=== PATIENT | female | born 2005 | race Two or more races ===

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

== ENCOUNTER 2024-05-12 16:41 | Emergency (ER) | payer MEDICAID, SELFPAY ==
[2024-05-12 16:45] VITALS: BP 119/66; PULSE 118; RESP 20; TEMP 36.6; O2SAT 99; BMI 29.2
[2024-05-12 17:33] LABS: Strep A DNA Probe* NOT DETECTED (Not Detectd)
--- NOTE | 2024-05-12 17:33 | ED.GENADULT ---
HPI - General Adult General Date Seen: 05/12/24 Chief complaint: Ear/Nose/Throat Problem Stated complaint: Sore throat, cough up bleeding Time Seen by Provider: 05/12/24 16:57 History of Present Illness HPI narrative: Patient is a 18-year-old here with mom for evaluation of sore throat and coughing up blood. He says he has had a sore throat for about 3 weeks. It is worse at night and if he drinks coffee. He is swallowing okay. He has not had a fever that he knows of. He has had a cough and over the past 24 hours a couple times coughed up some clear sputum which was blood-streaked. He has not had any devin hemoptysis, no chest pain, no shortness of breath. He does have a roommate who had influenza couple of weeks ago. He says that he came in today because he was looking online and saw that strep throat could cause rheumatic fever, became concerned and thought he should be seen. Related Data Home Medications ?Medication ?Instructions ?Recorded ?Confirmed cholecalciferol (vitamin D3) 125 125 mcg PO DAILY 01/08/23 01/08/23 mcg (5,000 unit) capsule duloxetine 20 mg capsule,delayed 20 mg PO DAILY 01/08/23 01/08/23 release (Cymbalta) ferrous gluconate 324 mg (37.5 mg 324 mg PO DAILY 01/08/23 01/08/23 iron) tablet hydroxyzine HCl 25 mg tablet 25 mg PO Q6-8H PRN 01/08/23 01/08/23 melatonin 3 mg capsule 3 mg PO DAILY 01/08/23 01/08/23 phentermine 15 mg capsule 15 mg PO DAILY 01/08/23 01/08/23 sumatriptan succinate 25 mg tablet 25 mg PO Q2-4H PRN 01/08/23 01/08/23 testosterone cypionate 200 mg/mL 200 mg IM DAILY 01/08/23 01/08/23 intramuscular kit topiramate 25 mg tablet (Topamax) 75 mg PO DAILY 01/08/23 01/08/23 Allergies Allergy/AdvReac Type Severity Reaction Status Date / Time amoxicillin Allergy Verified 05/12/24 16:45 azithromycin Allergy Verified 05/12/24 16:45 PFSH PFSH Social History Smoking Status: Never smoker Do you use any of these nicotine containing products: None How often do you have a drink containing alcohol: never AUDIT-C Alcohol total score: 0 Non-prescribed substance use: denies use Exam Narrative: Exam Narrative: Vital signs reviewed In general, alert, nontoxic young man. Breathing easily. Voice is normal. Head: Normocephalic, atraumatic. Eyes: Sclera clear. Pupils equal and reactive. ENT: Mucous membranes moist. Throat is normal. No tonsillar exudate or edema. Neck: Supple without adenopathy. Heart: Regular rate and rhythm without murmur. Lungs: Clear. No increased work of breathing, crackles or wheezes. Extremities: Well perfused, pulses intact. No significant edema. Neurologic: Alert, conversant. Speech fluent, face symmetric. Moves all extremities equally. Skin: Warm, dry well perfused. Affect: Normal. Const: Vital Signs, click to edit/add: Vital Signs - 24 hr 05/12/24 16:45 Temperature 97.8 F Pulse Rate [Pulse Oximeter] 118 H Respiratory Rate 20 Blood Pressure [Ri ght Upper Arm] 119/66 Pulse Oximetry 99 Oxygen Delivery Me thod Room Air Course Course ED Course: Rapid strep is pending. Reviewed with him I do not find anything on history or exam to suggest rheumatic fever. He does not have any complaints of chest pain, shortness of breath, fevers, lungs are clear and the bloody noted with coughing sounds like it is likely from an ENT source. At this time I do not see an indication for imaging of the chest. Certainly possible that he has or had influenza with his roommates recent illness. However, given that he has been sick for few weeks, I do not think testing provides a lot of additional information for us. Strep DNA is negative. Symptoms are likely viral. Recommend supportive care, ibuprofen and/or Tylenol. Primary care follow-up if he does not feel is improving. Vital Signs Vital signs: Initial Vital Signs Temperature 97.8 F 05/12/24 16:45 Temperature Source Temporal Artery Scan 05/12/24 16:45 Pulse Rate 118 H 05/12/24 16:45 Respiratory Rate 20 05/12/24 16:45 Blood Pressure 119/66 05/12/24 16:45 Blood Pressure Mean 83 05/12/24 16:45 Blood Pressure Position Sitting 05/12/24 16:45 Pulse Oximetry 99 05/12/24 16:45 Oxygen Delivery Method Room Air 05/12/24 16:45 Vital Signs Temperature 97.8 F 05/12/24 16:45 Pulse Rate 118 H 05/12/24 16:45 Respiratory Rate 20 05/12/24 16:45 Blood Pressure 119/66 05/12/24 16:45 Pulse Oximetry 99 05/12/24 16:45 Oxygen Delivery Method Room Air 05/12/24 16:45 Temperature 97.8 F 05/12/24 16:45 Pulse Rate 118 H 05/12/24 16:45 Respiratory Rate 20 05/12/24 16:45 Blood Pressure 119/66 05/12/24 16:45 Pulse Oximetry 99 05/12/24 16:45 Oxygen Delivery Method Room Air 05/12/24 16:45 Medical Decision Making Lab Data Labs: Lab Results 05/12/24 Range/Units 16:56 Group A Strep DNA NOT DETECTED (Not Detectd) Discharge Plan Discharge Clinical Impression: Pharyngitis Patient Disposition: Home, Self-Care Condition: Stable Instructions: Pharyngitis (ED) Additional Instructions: You can use ibuprofen or Tylenol if you need. As your mom suggest, you can also use cough drops. Return if you are feeling worse. See your doctor if you do not failure improving over the next week or so. Prescriptions: No Action cholecalciferol (vitamin D3) 125 mcg (5,000 unit) capsule 125 mcg PO DAILY duloxetine [Cymbalta] 20 mg capsule,delayed release(DR/EC) 20 mg PO DAILY ferrous gluconate 324 mg (37.5 mg iron) tablet 324 mg PO DAILY hydroxyzine HCl 25 mg tablet 25 mg PO Q6-8H PRN melatonin 3 mg capsule 3 mg PO DAILY sumatriptan succinate 25 mg tablet 25 mg PO Q2-4H PRN Rx Instructions: do not exceed 8 doses per 24 hrs topiramate [Topamax] 25 mg tablet 75 mg PO DAILY phentermine 15 mg capsule 15 mg PO DAILY Rx Instructions: must administer 2 hours after breakfast testosterone cypionate 200 mg/mL kit 200 mg IM DAILY Follow Up/Referrals: Provider,Not a Local [Primary Care Provider] - Stand Alone [facility] Info [facility]
== END 2024-05-12 17:49 | disposition home or self-care (01) ==
PROVIDERS: Emergency Provider Emergency Medicine
DX: J02.9 Acute pharyngitis, unspecified (principal)
CPT/HCPCS: 87651; 99282; 99283

== ENCOUNTER 2024-07-19 10:20 | Emergency (ER) | payer MEDICAID, SELFPAY ==
[2024-07-19 10:26] VITALS: BP 137/76; PULSE 105; RESP 18; TEMP 36.9; O2SAT 97; BMI 28.8
--- NOTE | 2024-07-19 10:55 | CRLHL7_ITS ---
For Patients: As a result of the Century Cures Act, medical imaging exams and procedure reports are released immediately into your electronic medical record. You may view this report before your referring provider. If you have questions, please contact your health care provider. INDICATION: Right-sided chest discomfort. TECHNIQUE: Chest 2 views. COMPARISON: None FINDINGS: Tubes and devices: None. Lungs: Lungs are clear. No sign of infiltrate or mass. Pleura: No pleural effusion. No pneumothorax. Heart: Heart size and vasculature are normal in caliber and appearance. Ayesha and Mediastinum: No enlargement. Bones and soft tissues: No significant findings. IMPRESSION: Unremarkable chest. Dictated by Marques Catalan MD @ 07/19/2024 11:10:08 AM (Electronically Signed)
--- NOTE | 2024-07-19 10:59 | ED_ITS ---
HPI - Chest Pain General Date Seen: 07/19/24 Chief Complaint: Chest Pain Stated Complaint: chest pain Time Seen by Provider: 07/19/24 10:42 Source: patient Mode of arrival: ambulatory Limitations: no limitations History of Present Illness HPI narrative: Patient is a 18-year-old female to male transgender patient presenting to the emergency department for right-sided chest discomfort. He states since last night having this right-sided chest discomfort. Initially was radiating to his right shoulder now seems to be is located in the right side of his chest. Also states is the tingling sensation and he has been having palpitations. Palpitations seems still be there at this time he states. Has been having some mild lightheadedness. Will feel some shortness of breath with exertion. Has not been having a cough. Has not noticed any hemoptysis. No recent travel. Is taking testosterone. Denies history of calling disorders in the family. Has never had a blood clot before. Denies diarrhea,, abdominal pain, fevers, chills, sick contacts. Did try to eat without any relief in the symptoms. No other concerns noted denies symptoms to this before. Related Data Home Medications ?Medication ?Instructions ?Recorded ?Confirmed cholecalciferol (vitamin D3) 125 125 mcg PO DAILY 01/08/23 07/19/24 mcg (5,000 unit) capsule duloxetine 20 mg capsule,delayed 20 mg PO DAILY 01/08/23 07/19/24 release (Cymbalta) ferrous gluconate 324 mg (37.5 mg 324 mg PO DAILY 01/08/23 07/19/24 iron) tablet hydroxyzine HCl 25 mg tablet 25 mg PO Q6-8H PRN 01/08/23 07/19/24 melatonin 3 mg capsule 3 mg PO DAILY 01/08/23 07/19/24 phentermine 15 mg capsule 15 mg PO DAILY 01/08/23 07/19/24 sumatriptan succinate 25 mg tablet 25 mg PO Q2-4H PRN 01/08/23 07/19/24 testosterone cypionate 200 mg/mL 200 mg IM DAILY 01/08/23 07/19/24 intramuscular kit topiramate 25 mg tablet (Topamax) 75 mg PO DAILY 01/08/23 07/19/24 Allergies Allergy/AdvReac Type Severity Reaction Status Date / Time amoxicillin Allergy Verified 07/19/24 10:33 azithromycin Allergy Verified 07/19/24 10:33 Review of Systems Status of ROS Reports: 10 or more systems reviewed and unremarkable except as noted in History and below PFSH [facility] Social History Smoking Status: Never smoker Do you use any of these nicotine containing products: None How often do you have a drink containing alcohol: never AUDIT-C Alcohol total score: 0 Non-prescribed substance use: denies use Exam Narrative Exam Narrative: Const: Well-nourished, Well-developed, in mild distress Eyes: PERRL, no conjunctival injection, and symmetrical lids HENT: Atraumatic external nose and ears. Moist mucous membranes. Neck: Symmetric, trachea midline, No thyromegaly. CVS: RRR, No murmurs or gallops. Peripheral pulses 2+ and equal in all extremities RESP: Unlabored respiratory effort. Clear to auscultation bilaterally. GI: Nontender/Nondistended, No rebound or guarding. MSK:Extremities w/o deformity, Normal Active ROM Skin: Warm, Dry. No rashes or lesions. Neuro: Normal Muscle tone, No focal neurological deficits. Psych: Awake, Alert, & Oriented x3. Appropriate mood and affect. Const Vital Signs, click to edit/add: Vital Signs - 24 hr 07/19/24 10:26 Temperature 98.5 F Pulse Rate [Pulse Oximeter] 105 H Respiratory Rate 18 Blood Pressure [Right Upper Arm] 137/76 Pulse Oximetry 97 Oxygen Delivery Method Room Air Course Vital Signs Vital signs: Initial Vital Signs Temperature 98.5 F 07/19/24 10:26 Temperature Source Temporal Artery Scan 07/19/24 10:26 Pulse Rate 105 H 07/19/24 10:26 Respiratory Rate 18 07/19/24 10:26 Blood Pressure 137/76 07/19/24 10: Blood Pressure Mean 96 07/19/24 10:26 Blood Pressure Position Sitting 07/19/24 10: Pulse Oximetry 97 07/19/24 10:26 Oxygen Delivery Method Room Air 07/19/24 10:26 Vital Signs Temperature 98.5 F 07/19/24 10:26 Pulse Rate 105 H 07/19/24 10:26 Respiratory Rate 18 07/19/24 10: Blood Pressure 137/76 07/19/24 10:26 Pulse Oximetry 97 07/19/24 10:26 Oxygen Delivery Method Room Air 07/19/24 10:26 Temperature 98.5 F 07/19/24 10: Pulse Rate 105 H 07/19/24 10: Respiratory Rate 18 07/19/24 10:26 Blood Pressure 137/76 07/19/24 10:26 Pulse Oximetry 97 07/19/24 10:26 Oxygen Delivery Method Room Air 07/19/24 10:26 MDM - Chest Pain MDM Narrative Medical decision making narrative: Patient is a 18-year-old female to male transgender patient presenting to the emergency department for chest pain. The differential diagnosis of chest pain is broad and includes common etiologies such as musculoskeletal strain, GERD, pneumonia, etc. More serious etiologies considered include PE, coronary artery disease, pneumothorax, aortic dissection, aortic aneurysm. With a history of hormone use PE does increase. Will do a D-dimer for better evaluation. Also EKG and troponin to look for signs of ACS. Unlikely to be myocarditis is/been no recent travel or viral infection. A chest x-ray to look for signs of pneumonia. Is not tender palpation to musculoskeletal strain seem less likely. He appears well aortic dissection aneuric aneurysm seem unlikely. Lab work shows no concerning abnormalities. Heart rate has improved to the mid 90s. D-dimer within normal limits. Viral swab negative. EKG and troponin showed no concerning findings. Symptoms have been going on since yesterday so I do not believe troponin is necessary. Chest x-ray reviewed by myself and the radiologist shows no concerning findings. At this time did I am not sure was causing his symptoms I do believe he is safe for discharge. All the emergent issues have been ruled out. Lab Data Labs: Lab Results 07/19/24 07/19/24 07/19/24 Range/Units 10:55 11:18 11:19 WBC 7.43 (4.50-11.00) K/uL RBC 5.94 H (4.00-5.20) m/uL Hgb 16.0 (12.0-16.0) gm/dL Hct 49.1 (33.0-51.0) % MCV 83 (80-100) fL MCH 27 (26-34) pg MCHC 33 (32-36) gm/dL RDW Coeff of Anna 12.9 (11.5-15.5) % Plt Count 294 (140-440) K/uL Neut % (Auto) 74.0 H (42.0-72.0) % Lymph % (Auto) 20.2 (20-44) % Wise % (Auto) 5.4 (0.0-11.0) % Eos % (Auto) 0.1 (0.0-7.0) % Baso % (Auto) 0.3 (0.0-3.0) % Neut # (Auto) 5.50 (1.7-7.0) K/uL Lymph # (Auto) 1.50 (0.90-2.90) K/uL Wise # (Auto) 0.40 (0.00-0.90) K/UL Eos # (Auto) 0.01 (0.00-0.50) K/uL Baso # (Auto) 0.02 (0.00-0.30) K/uL Abs Immat Gran (auto) 0.00 (0.00-0.30) K/uL Imm/Tot Granulo (auto) 0.0 % D-Dimer Quant (PE/DVT) < 0.27 (0.00-0.50) ug/ml Sodium 139 (135-149) mmol/L Potassium 4.2 (3.6-5.1) mmol/L Chloride 107 (96-114) mmol/L Carbon Dioxide 21 (20-32) mmol/L Anion Gap 11 (7-15) mEq/L BUN 11 (5-24) mg/dL Creatinine 1.2 (0.6-1.2) mg/dL Estimated Creat Clear 65.11 Estimated GFR 67 ml/min Glucose 83 (60-115) mg/dL Calcium 9.7 (8.7-10.8) mg/dL Magnesium 2.2 (1.5-2.6) mg/dL SARS-CoV-2 (PCR) Negative SARS-CoV-2 (Negative) Influenza Type A (PCR) Negative PCR FLU A (Negative) Influenza Type B (PCR) Negative PCR FLU B (Negative) RSV (PCR) Negative PCR RSV (Negative) POC Troponin I 0.00 L (0.01-0.04) ng/ml Imaging Data Chest x-ray: Attestation: I have reviewed the pertinent imaging results. Radiologist's impression: Unremarkable chest. Dictated by Marques Catalan MD @ 07/19/2024 11:10:08 AM ECG Data Attestation: I personally reviewed and interpreted this ECG as follows: Prior ECG tracings: not available for review Interpretation: Normal sinus rhythm with a rate of 94 beats per minute, normal intervals, normal axis, normal ST or T-wave abnormalities. There is some benign early repolarization Discharge Plan Discharge Clinical Impression: Atypical chest pain Patient Disposition: Home, Self-Care Condition: Stable Instructions: Noncardiac Chest Pain (ED) Additional Instructions: I am not sure was causing symptoms for now but I do not see any emergent issues on the workup today. If symptoms persist follow-up with your primary care provider. Return to emergency department for new or worsening symptoms Prescriptions: No Action cholecalciferol (vitamin D3) 125 mcg (5,000 unit) capsule 125 mcg PO DAILY duloxetine [Cymbalta] 20 mg capsule,delayed release(DR/EC) 20 mg PO DAILY ferrous gluconate 324 mg (37.5 mg iron) tablet 324 mg PO DAILY hydroxyzine HCl 25 mg tablet 25 mg PO Q6-8H PRN melatonin 3 mg capsule 3 mg PO DAILY sumatriptan succinate 25 mg tablet 25 mg PO Q2-4H PRN Rx Instructions: do not exceed 8 doses per 24 hrs topiramate [Topamax] 25 mg tablet 75 mg PO DAILY phentermine 15 mg capsule 15 mg PO DAILY Rx Instructions: must administer 2 hours after breakfast testosterone cypionate 200 mg/mL kit 200 mg IM DAILY Follow Up/Referrals: Provider,Not a Local [Primary Care Provider] - Stand Alone Forms: [facility] Info Instructions
[2024-07-19 11:30] LABS: Basophils Absolute Auto 0.02 K/uL (0.00-0.30); Basophils Percent Auto 0.3 % (0.0-3.0); Eosinophils Absolute Auto 0.01 K/uL (0.00-0.50); Eosinophils Percent Auto 0.1 % (0.0-7.0); Hematocrit 49.1 % (33.0-51.0); Lymphocytes Percent Auto 20.2 % (20-44); Mean Corpuscular HGB Conc 33 gm/dL (32-36); Mean Corpuscular Hemoglobin 27 pg (26-34); Mean Corpuscular Volume 83 fL (80-100); Monocytes Percent Auto 5.4 % (0.0-11.0); Platelet Count* 294 K/uL (140-440); RDW Coefficient of Variation % 12.9 % (11.5-15.5); Red Blood Count 5.94 m/uL (4.00-5.20); White Blood Count* 7.43 K/uL (4.50-11.00)
[2024-07-19 11:40] LABS: Slide Review Reflex No
[2024-07-19 11:50] LABS: Chloride* 107 mmol/L (96-114); Potassium* 4.2 mmol/L (3.6-5.1); Sodium* 139 mmol/L (135-149)
[2024-07-19 11:53] LABS: Anion Gap 11 mEq/L (7-15); Blood Urea Nitrogen* 11 mg/dL (5-24); Calcium* 9.7 mg/dL (8.7-10.8); Carbon Dioxide* 21 mmol/L (20-32); Creatinine* 1.2 mg/dL (0.6-1.2); Est. Creatinine Clearance* 65.11; Estimated Glomerular Filt Rate 67 ml/min; Glucose* 83 mg/dL (60-115); Magnesium* 2.2 mg/dL (1.5-2.6)
[2024-07-19 12:06] LABS: PCR FLU A Negative PCR FLU A (Negative); PCR FLU B Negative PCR FLU B (Negative); PCR RSV Negative PCR RSV (Negative); SARS PCR* Negative SARS-CoV-2 (Negative)
[2024-07-19 12:43] LABS: D Dimer Quantitative* < 0.27 ug/ml (0.00-0.50)
[2024-07-19 12:54] VITALS: BP 133/69; PULSE 104; RESP 18; TEMP 36.5; O2SAT 99
== END 2024-07-19 13:18 | disposition home or self-care (01) ==
PROVIDERS: Emergency Provider Student in an Organized Health Care Education/Training Program
DX: R07.89 Other chest pain (principal)
CPT/HCPCS: 36415; 71046; 80048; 83735; 84484; 85025; 85379; 87631; 93005; 99284; 99285